=== PATIENT | male | born 1950 | race Caucasian/White ===

== ENCOUNTER 2019-04-27 01:00 | Emergency (ER) | payer OTHER, BC ==
--- NOTE | 2019-04-27 01:03 | PDOC ---
History of Present Illness - General Chief Complaint: Redness To Affected Area Stated Complaint: RED/SWELLING LT FOREARM Time Seen by Provider: 04/27/19 01:02 History Source: Patient Exam Limitations: No Limitations - History of Present Illness Initial Comments: 04/27/19 01:02 HPI 69 YOM PMH of HTN, HLD, CAD s/p CABG x 3, and BPH presenting with left forearm redness, swelling and itching x 7 hours, after being stung by an insect, ? mosquito. he took benadryl 25mg PO x1 at 10pm, with some relief. the itching has resolved , the swelling is still present. Denies fever, chills, weakness, paresthesias, lesions purulence. no chest pain or shortness of breath. no sore throat or airway involvement. no rash. no abdominal pain, n/v/d. Allergies: peach, bees Past Medical History/surgical history: Hyperlipidemia Hypertension BPH CAD s/p 3v CABG 2007 R wrist ORIF Social history: Lives with family. No tobacco, ETOH or drug use. 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 No weakness HEENT: no headache or dizziness. No congestion. no sore throat. no eye pain or discharge. Chest: no chest pain Resp: no shortness of breath. SKIN: +redness, +swelling, no discharge, no rash. No wounds. no purulence. Hematologic: no easy bruising/bleeding. NEUROLOGIC: No weakness, numbness or tingling. Allergic/Immunologic: +bee and peach allergies. All other systems reviewed and negative, or as documented in HPI. Physical exam General: Well appearing, awake and alert, NAD. HEENT: NCAT, PERRL, EOMI, clear conjunctiva, anicteric, moist mucus membranes, clear oropharynx, normal phonation, airway patent. Neck: neck supple, FROM Resp: CTAB, normal and even respirations, no respiratory distress CVS: RRR, no murmurs, 2+ peripheral pulses throughout, no peripheral edema Abdomen: soft, nontender MSK: no edema, DE LEON x4, ROM intact. No clubbing or cyanosis. normal bulk and tone. Neuro: alert Psych: Calm and cooperative Skin: warm and well perfused, cap refill <2 sec, normal color; left inner forearm on palmar aspect with 4x6cm area of swelling and faint erythema; no discharge. no lesions. no warmth. 04/27/19 01:03 04/27/19 01:04 04/27/19 01:20 04/27/19 01:24 04/27/19 01:34 Past History - Past Medical History Allergies/Adverse Reactions: Allergies Allergy/AdvReac Type Severity Reaction Status Date / Time peach [[place]verse] Allergy Intermediate rash Verified 05/09/16 20:47 BEE STING Allergy Uncoded 12/29/12 20:57 Home Medications: Ambulatory Orders Aspirin 81 mg PO DAILY 12/29/12 Pravastatin Sodium [Pravachol -] 40 mg PO HS 12/29/12 Ramipril 10 mg PO DAILY 04/27/19 Anemia: No Asthma: No Cancer: No Cardiac Disorders: Yes (CAD) CVA: No COPD: No CHF: No Dementia: No Diabetes: No GI Disorders: No Disorders: No HTN: Yes Hypercholesterolemia: Yes Liver Disease: No Seizures: No Thyroid Disease: No - Surgical History Abdominal Surgery: No Appendectomy: No Cardiac Surgery: Yes (CABG X3 2007) Cholecystectomy: No Lung Surgery: No Neurologic Surgery: No Orthopedic Surgery: Yes (ORIF Right Wrist) - Psycho Social/Smoking Cessation Hx Smoking Status: No Smoking History: Never smoked Have you smoked in the past 12 months: No Number of Cigarettes Smoked Daily: 0 Hx Alcohol Use: No Drug/Substance Use Hx: No Substance Use Type: None Hx Substance Use Treatment: No Medical Decision Making - Medical Decision Making 04/27/19 01:22 Vital Signs Temp Pulse Resp BP Pulse Ox 97.5 F L 50 L 16 148/82 99 04/27/19 01:01 04/27/19 01:01 04/27/19 01:01 04/27/19 01:01 04/27/19 01:01 vitals reviewed, wnl well appearing no e/o anaphylaxis. no systemic s/s to suggest infection or allergic reaction localized inflammation 2/2 insect bite/sting given additional appropriately dosed benadryl, ice the area and demarcated monitor for s/s infection, worsening redness, swelling, discharge. no indication for abx currently. DC stable condition, return precautions, supportive care, ice the area and benadryl prn q8h for the itching/redness/swelling Discharge - Discharge Information Problems reviewed: Yes Clinical Impression/Diagnosis: Insect bite Qualifiers: Encounter type: initial encounter Site of insect bite: forearm Condition: Stable Disposition: HOME - Admission No - Follow up/Referral Referrals: Kwasi Perez MD [Primary Care Provider] - - Patient Discharge Instructions Patient Printed Discharge Instructions: DI for Insect Bites and Stings Additional Instructions: 1) Please follow-up with your primary care doctor in the next 1-2 days. Please call tomorrow for for any urgent issues. 2) If you have any worsening of symptoms or any other concerns please return to the ED immediately. Return if worsening symptoms including fevers, headache, vomiting, pus, malodor, worsening redness/tracking, swelling, pain, chest pain, shortness of breath, syncope, dehydration, inability to take things by mouth/ vomiting, altered mental status, or worsening concerning symptoms. 3) Please continue taking your home medications as directed. your medications on discharge include benadryl 25-50mg every 8 hours as needed for itching and redness/swelling . side effects may include sleepiness/drowsiness, dry mouth. do not drink alcohol with your medications. Stay well hydrated and rest adequately. Make an appointment. If you cannot follow-up with your primary care doctor please return to the ED - Post Discharge Activity
[2019-04-27 01:12] VITALS: BP 148/82; PULSE 50; TEMP 97.5; BMI 26.6
[2019-04-27] MEDS ORDERED: diphenhydrAMINE HCL 25 MG CAPSULE (FP) PO ONE ×2 (01:16→01:19)
== END 2019-04-27 01:33 | disposition home or self-care (01) ==
LOC: FER 01:00
DX: S50.862A Insect bite (nonvenomous) of left forearm, initial encounter (principal); W57.XXXA Bitten or stung by nonvenomous insect and other nonvenomous arthropods, initial encounter; Y93.9 Activity, unspecified; Y92.9 Unspecified place or not applicable; L53.8 Other specified erythematous conditions; I10 Essential (primary) hypertension; E78.5 Hyperlipidemia, unspecified; I25.10 Atherosclerotic heart disease of native coronary artery without angina pectoris; Z91.018 Allergy to other foods; Z91.030 Bee allergy status
CPT/HCPCS: 99281-25

== ENCOUNTER 2021-07-14 07:12 | Day surgery (SDC) | payer OTHER, BC ==
[2021-07-12 16:09] VITALS: BMI 25.2
[2021-07-14 10:24] VITALS: TEMP 97.7
[2021-07-14 11:13] VITALS: BP 147/65; PULSE 52
== END 2021-07-14 11:35 | disposition home or self-care (01) ==
LOC: FASU-ENDO 07:12
PROVIDERS: ATTEND Internal Medicine Gastroenterology
PROC: 0DBN8ZX Excision of Sigmoid Colon, Via Natural or Artificial Opening Endoscopic, Diagnostic (ICD-10-PCS; principal; 2021-07-14)
DX: Z12.11 Encounter for screening for malignant neoplasm of colon (principal); Z83.71 Family history of colonic polyps; K57.30 Diverticulosis of large intestine without perforation or abscess without bleeding; K63.89 Other specified diseases of intestine
CPT/HCPCS: 88305-TC

== ENCOUNTER 2023-05-18 02:29 | Emergency (ER) | payer OTHER, BC ==
[2023-05-18 02:38] VITALS: BMI 27.3
[2023-05-18 04:34] LABS: BASO % 1.1 % (0-2.0); EOS % 2.8 % (0-4.5); HEMATOCRIT 38.6 % (35.4-49); LYMPH % 8.2 % (8-40); MCH 27.5 pg (25.7-33.7); MCHC 33.8 g/dl (32.0-35.9); MEAN CELL VOLUME 81.3 fl (80-96); MEAN PLT VOLUME 7.5 fl (7.5-11.1); MONO % 10.3 % (3.8-10.2); NEUT % 77.6 % (42.8-82.8); PLATELET COUNT 248 10^3/uL (134-434); RBC 4.75 M/mm3 (4.00-5.60); RDW 16.4 % (11.9-15.9); WHITE BLOOD COUNT 9.9 K/mm3 (4.0-10.0)
[2023-05-18 04:44] LABS: INR 1.05 (0.83-1.09); PROTHROMBIN TIME (PATIENT) 12.2 SEC (9.7-13.0)
[2023-05-18 05:10] LABS: ALBUMIN 3.3 g/dl (3.4-5.0); BLOOD UREA NITROGEN 16.1 mg/dL (7-18); CALCIUM 8.1 mg/dL (8.5-10.1)
[2023-05-18 05:15] LABS: BILIRUBIN,TOTAL 0.3 mg/dL (0.2-1); TOT PROT 6.2 g/dl (6.4-8.2)
[2023-05-18] MEDS ORDERED: PIPERACILLIN/TAZOB 3.375 GM 3.375 GM in DEXTROSE 5%-WATER - 50 ML IVPB ONE (06:57)
[2023-05-18] MEDS ORDERED: PIPERACILLIN/TAZOBACTAM 3.375 GM VIAL IVPB ONE (07:00)
[2023-05-18 10:36] VITALS: BP 121/63; PULSE 53; RESP 18; TEMP 97.7
[2023-05-18] MEDS ORDERED: CEFTRIAXONE 1 GM in DEXTROSE 5%-WATER - 50 ML IVPB SCH (12:00)
[2023-05-18] MEDS ORDERED: cefTRIAXone SODIUM 1 GM VIAL ONE (13:27)
[2023-05-18] MEDS ORDERED: ATORVASTATIN CA 40 MG TABLET (FP) PO SCH (22:00)
[2023-05-19] MEDS ORDERED: FINASTERIDE 5 MG TABLET (FP) PO SCH (10:00)
[2023-05-19] MEDS ORDERED: RAMIPRIL 5 MG CAPSULE PO SCH (10:00)
[2023-05-19] MEDS ORDERED: amLODIPine BESYLATE 5 MG TABLET (FP) PO SCH (10:00)
== END 2023-05-18 15:35 | disposition left against medical advice (07) ==
LOC: FER 02:29
DX: K62.5 Hemorrhage of anus and rectum (principal); Z20.822 Contact with and (suspected) exposure to COVID-19
CPT/HCPCS: 0241U-QW; 36415; 74177-TC; 80053; 83036; 85025; 85610; 86850; 86900; 86901; 93005; 99285-25; Q9967